=== PATIENT | male | born 1945 | race Caucasian/White ===

== ENCOUNTER 2024-09-10 06:57 | Day surgery (SDC) | payer MEDICARE ==
[2024-09-09 11:17] LABS: BASOPHILS # (AUTO) 0.1 X10'3 (0-0.2); EOSINOPHILS # (AUTO) 0.4 X10'3 (0-0.9); EOSINOPHILS % (AUTO) 5.9 % (0-6); HEMATOCRIT 41.4 % (42.0-52.0); HEMOGLOBIN 13.8 g/dl (14.0-17.9); LYMPHOCYTES # (AUTO) 1.6 X10'3 (1.1-4.8); LYMPHOCYTES % (AUTO) 21.2 % (21-51); MEAN CORPUSCULAR HEMOGLOBIN 33.5 PG (27.0-31.0); MEAN CORPUSCULAR HGB CONC 33.4 g/dL (33.0-36.5); MEAN CORPUSCULAR VOLUME 100.2 FL (78-98); MEAN PLATELET VOLUME 8.3 FL (7.4-10.4); MONOCYTES # (AUTO) 0.8 X10'3 (0-0.9); MONOCYTES % (AUTO) 10.3 % (2-12); NEUTROPHILS # (AUTO) 4.5 X10'3 (1.8-7.7); NEUTROPHILS % (AUTO) 61.6 % (42-75); PLATELET COUNT 169 X10'3 (140-440); RED BLOOD COUNT 4.13 X10'6 (4.70-6.10); RED CELL DISTRIBUTION WIDTH 17.3 % (11.5-14.5); WHITE BLOOD COUNT 7.4 X10'3 (4.5-11.0)
[2024-09-09 11:37] LABS: ALBUMIN 3.7 G/DL (3.4-5.0); ANION GAP 10 (8-16); BLOOD UREA NITROGEN 22 MG/DL (7-18); CALCIUM 9.1 MG/DL (8.5-10.1); CHLORIDE 108 MMOL/L (99-107); CREATININE 1.47 MG/DL (0.60-1.10); GLUCOSE 112 MG/DL (70-104); POTASSIUM 4.1 MMOL/L (3.5-5.1); SODIUM 144 MMOL/L (135-145); TOTAL CARBON DIOXIDE 26.3 MMOL/L (24-32); eGFR 46 ML/MIN
[2024-09-09 11:45] LABS: APTT 28 SECONDS (22-32); INR 1.1 INR; PROTHROMBIN TIME 11.7 SECONDS (9.0-12.0)
[~2024-09-10] VITALS: Ht 175.3 cm; Wt 103.7 kg
[2024-09-10] VITALS (14 sets, daily range): BP systolic 139–157; BP diastolic 65–82; PULSE 48–66; RESP 10–18; TEMP 97.3; O2SAT 90–96
[2024-09-10] MEDS ORDERED: fentaNYL/PF 50MCG/1 ML 2ML syringe ONE (08:16)
[2024-09-10] MEDS ORDERED: verapamil 2.5 mg/ml inj IV ONE (08:16)
[2024-09-10] MEDS ORDERED: LIDOcaine 1% (10mg/ml) 2ml vial ONE (08:16)
[2024-09-10] MEDS ORDERED: midazolam 1 mg/ML 2ml injection ONE (08:16)
[2024-09-10] MEDS ORDERED: nitroGLYCERIN 500mcg/5mL D5W 5 ML IV ONE (08:17)
[2024-09-10] MEDS ORDERED: heparin 1,000unit/ml 10ml vial 10 ML ONE (08:17)
[2024-09-10] MEDS ORDERED: iohexol 350 MG/ML 50ML vial IV ONE (08:17)
[2024-09-10] MEDS ORDERED: iohexol 350MG/ML 100ml bottle IV ONE (08:17)
[2024-09-10] MEDS: diphenhydrAMINE 25mg capsule PO PRN (08:20)
[2024-09-10] MEDS: sodium bicarbonate 1meq/ml syr 150 ML in dextrose 5%-water 1,000 ML IV ONE (08:20)
[2024-09-10] MEDS: LORazepam 0.5 MG tablet PO PRN (08:20)
[2024-09-10] MEDS: normal saline 1,000 ML IV SCH (08:20)
[2024-09-10] MEDS: acetylcysteine 200 MG/ml 4ml vial PO PRN (08:21)
[2024-09-10] MEDS ORDERED: NITR0.4T48 SL (08:23)
[2024-09-10] MEDS ORDERED: ALBU18HF2 (08:23)
[2024-09-10] MEDS ORDERED: ATOR-2 PO (08:23)
[2024-09-10] MEDS ORDERED: BUSP7.5T5 PO (08:23)
[2024-09-10] MEDS ORDERED: ACET-2006 PO (08:23)
[2024-09-10] MEDS ORDERED: MUPI15CR12 TOP (08:23)
[2024-09-10] MEDS ORDERED: UBID200C18 PO (08:23)
[2024-09-10] MEDS ORDERED: ZINC50TA60 PO (08:23)
[2024-09-10] MEDS ORDERED: ASCO100031 PO (08:23)
[2024-09-10] MEDS ORDERED: ERGO500056 PO (08:23)
[2024-09-10] MEDS ORDERED: GABA300T28 PO (08:23)
[2024-09-10] MEDS ORDERED: HYDR20OI TOP (08:23)
[2024-09-10] MEDS ORDERED: CLOP75TA34 PO (08:23)
[2024-09-10] MEDS ORDERED: AMLO-708 PO (08:23)
[2024-09-10] MEDS ORDERED: FLO0.4C PO (08:23)
[2024-09-10] MEDS ORDERED: CHOL50004 PO (08:23)
[2024-09-10] MEDS ORDERED: ELDE350C (08:23)
[2024-09-10] MEDS ORDERED: CLON0.1T PO (08:23)
[2024-09-10] MEDS ORDERED: ASPI-611 PO (08:23)
[2024-09-10] MEDS ORDERED: MAGN64TA8 PO (08:23)
[2024-09-10] MEDS ORDERED: ESCI20TA39 PO (08:23)
[2024-09-10] MEDS ORDERED: HYDR25TA90 PO (08:23)
[2024-09-10] MEDS ORDERED: QUER500C PO (08:23)
[2024-09-10] MEDS ORDERED: PILO5TAB10 PO (08:23)
[2024-09-10] MEDS ORDERED: CALC0.2535 PO (08:23)
[2024-09-10] MEDS ORDERED: ISOS60TA71 PO (08:23)
[2024-09-10] MEDS ORDERED: FLUT16SP26 BOTHNARES (08:23)
[2024-09-10] MEDS ORDERED: TRIA454O TOP (08:23)
[2024-09-10] MEDS ORDERED: CARV-50 PO (08:23)
[2024-09-10] MEDS ORDERED: GLUC-221 (08:23)
[2024-09-10] MEDS ORDERED: LIDOcaine 1% 30ml preserv. free vial ONE (09:00)
[2024-09-10] MEDS ORDERED: heparin 25,000 UNIT/250ml bag 250 ML IV ONE ×2 (09:10→10:06)
[2024-09-10 09:58] LABS: ISTAT HGB ART 12.9 g/dl (14.0-17.9); ISTAT Hct ART 38 %PCV (42-52); ISTAT O2 SATURATION ARTERIAL 92 % (95-98); ISTAT SOURCE ART
[2024-09-10 14:56] LABS: ISTAT HGB MIX 12.9 g/dl (14.0-17.9); ISTAT Hct MIX 38 %PCV (42-52); ISTAT O2 SATURATION MIX VENOUS 54 % (60-80); ISTAT SOURCE VEN
[2024-09-10] MEDS: acetylcysteine 200 MG/ml 4ml vial PO SCH (17:31)
== END 2024-09-10 17:35 | disposition home or self-care (01) ==
LOC: SSTAY O 06:57
PROVIDERS: ATTEND Internal Medicine Cardiovascular Disease
DX: R94.39 Abnormal result of other cardiovascular function study (principal); I25.810 Atherosclerosis of coronary artery bypass graft(s) without angina pectoris; R53.83 Other fatigue; R06.02 Shortness of breath; I12.9 Hypertensive chronic kidney disease with stage 1 through stage 4 chronic kidney disease, or unspecified chronic kidney disease; N18.9 Chronic kidney disease, unspecified; I25.82 Chronic total occlusion of coronary artery; E78.5 Hyperlipidemia, unspecified; I25.2 Old myocardial infarction; J45.909 Unspecified asthma, uncomplicated; F41.9 Anxiety disorder, unspecified; G47.33 Obstructive sleep apnea (adult) (pediatric); F32.A Depression, unspecified; I49.5 Sick sinus syndrome; M19.90 Unspecified osteoarthritis, unspecified site; E66.9 Obesity, unspecified; F17.210 Nicotine dependence, cigarettes, uncomplicated; Z95.1 Presence of aortocoronary bypass graft; Z85.828 Personal history of other malignant neoplasm of skin; Z98.49 Cataract extraction status, unspecified eye; Z85.819 Personal history of malignant neoplasm of unspecified site of lip, oral cavity, and pharynx; Z79.899 Other long term (current) drug therapy; Z98.890 Other specified postprocedural states; Z82.49 Family history of ischemic heart disease and other diseases of the circulatory system
CPT/HCPCS: 36415; 80048; 82803; 85014; 85025; 85610; 85730; 93005; 93461; 99152; 99153; A4615; A6258; C1725; C1751; C1769; C1894; J1644; J2003; J2250; J3010; J3490; J7030; J7070; Q0163; Q9967; Z7610; 76937; 93567

== ENCOUNTER 2025-03-25 06:02 | Day surgery (SDC) | payer MEDICARE ==
[2025-03-24 12:42] LABS: MEAN PLATELET VOLUME 8.9 FL (7.4-10.4); RED CELL DISTRIBUTION WIDTH 18.0 % (11.5-14.5)
[2025-03-24 12:52] LABS: CREATININE 1.62 MG/DL (0.60-1.10); TOTAL CARBON DIOXIDE 27.1 MMOL/L (24-32); eGFR 41 ML/MIN
[2025-03-24 12:53] LABS: APTT 29 SECONDS (22-32); INR 1.1 INR
[~2025-03-25] VITALS: Ht 172.7 cm; Wt 101.6 kg
[2025-03-25] VITALS (9 sets, daily range): BP systolic 140–163; BP diastolic 61–76; PULSE 62–75; RESP 11–19; O2SAT 92–94
[~2025-03-25 06:02] MED LIST: ACET-2006 PO; ALBU18HF2; AMLO-708 PO; ASCO10004 PO; ASPI-611 PO; ATOR-2 PO; BUSP7.5T5 PO; CALC0.2535 PO; CARV-50 PO; CHOL50004 PO; CLON0.1T PO; CLOP75TA34 PO; ELDE350C; ERGO500056 PO; ESCI20TA39 PO; FLUT16SP26 BOTHNARES; GABA300T28 PO; GLUC-221; HYDR20OI TOP; HYDR25TA90 PO; ISOS60TA71 PO; MAGN71.52 PO; MUPI15CR12 TOP; NITR0.4T48 SL; PILO5TAB10 PO; QUER500C PO; TAMS-55 PO; TRIA454O TOP; UBID200C18 PO; ZINC50TA60 PO
--- NOTE | 2025-03-25 06:29 | ELECTROCARDIOGRAPH REPORT ---
[facility] Test Date: 2025-03-25 Test Time: 06:28:26 Pat Name: SADI TSE Department: [facility] Patient ID: [id number] Room: Gender: M Hose Tester: MELISSA : 1945 Requested By: CORNELIUS SKINNER Order Number: [id number] Reading MD: Dr. NED Skinner Measurements Intervals [place] Rate: 50 P: 52 CT: 284 QRS: 57 QRSD: 121 T: 76 QT: 539 QTc: 492 Interpretive Statements Sinus rhythm Atrial premature complexes Prolonged CT interval Nonspecific intraventricular conduction delay Electronically Signed On 03-27-2025 20:17:[address] NED Skinner Please click the below link to view image of tracing.
[2025-03-25] MEDS ORDERED: APIX5TAB3 PO (07:12)
[2025-03-25] MEDS ORDERED: Slow Mag PO (07:15)
[2025-03-25] MEDS ORDERED: ceFAZolin 2gm/dext,iso 50mL 50 ML IV ONE (07:31)
[2025-03-25] MEDS ORDERED: fentaNYL/PF 50MCG/1 ML 2ML syringe ONE (07:43)
[2025-03-25] MEDS ORDERED: LIDOcaine 1% W/epiNEPHrine 1:100,000 20ml vial ONE (07:43)
[2025-03-25] MEDS ORDERED: midazolam 1 mg/ML 2ml injection ONE (07:43)
[2025-03-25] MEDS ORDERED: CEPH-585 PO (12:20)
[2025-03-25] MEDS: vancomycin/NS 1 GM ADD-VANTAGE 250 ML IV ONE (13:12)
[2025-03-25] MEDS: normal saline 1000ml 1,000 ML IV SCH (13:12)
--- NOTE | 2025-03-25 13:33 | RADIOLOGY REPORT ---
DI CHEST,TWO VIEWS CLINICAL HISTORY: S/P PACEMAKER COMPARISON: None TECHNIQUE: Frontal and lateral view of the chest was obtained FINDINGS: Lines and Tubes: Left pacemaker. Lungs: No focal consolidation. Pleura: No effusion. No pneumothorax. Cardiomediastinal contours:Cardiomegaly Bones: Left shoulder arthroplasty. IMPRESSION: Cardiomegaly with mild CHF
--- NOTE | 2025-03-26 09:10 | CARDIOLOGY REPORT ---
DATE OF SERVICE: 03/25/2025 DICTATING PHYSICIAN: NED Matias MD PERMANENT PACEMAKER IMPLANTATION REPORT GENDER: Male. AGE: 79 years. HEIGHT: 172 cm. WEIGHT: 101 kg. BODY SURFACE AREA: 2.13 m2. PRIMARY PHYSICIAN: Korey Adamson MD LAY MIDWIFE: NED Matias MD INDICATION: The patient is a 79-year-old male with history of hypertension, hyperlipidemia, obstructive sleep apnea, history of smoking, CAD, status post CABG x 3 back in 1979 in [facility]. The patient has history of sick sinus syndrome and the patient had an event monitor which showed a lowest heart rate of 32 and now has episodes of AFib with paroxysmal atrial fibrillation. The patient has been having exertional fatigue and tiredness, and after discussing risks, benefits and alternative options, the patient has decided to proceed with permanent pacemaker implantation. Risks and benefits and alternative options were discussed. Informed consent was obtained. PREPROCEDURE DIAGNOSES: Sick sinus syndrome with tachybrady episodes and paroxysmal atrial fibrillation. POSTPROCEDURE DIAGNOSES: Sick sinus syndrome with tachybrady episodes and paroxysmal atrial fibrillation. PROCEDURES: * Fluoroscopy. * AV sequential pacemaker implantation. * Conscious sedation of 105 minutes. DESCRIPTION OF PROCEDURE: Left infraclavicular area was prepped and draped in the usual fashion. Using percutaneous Seldinger technique, 2 separate access obtained in the left subclavian vein using percutaneous micropuncture, exchanged with 2 J-wires. A horizontal incision placed in the left infraclavicular area. Using blunt dissection and electrocautery, subcutaneous prepectoral pacemaker pocket was fashioned. External ends of the J wires were retrieved into the pacemaker pocket. Two 7-Italian sheaths were advanced over both J-wires. Through one of them, RV lead advanced to the RV apex, screwed into the RV apex. Appropriate pacing and sensing thresholds obtained. Through the second RA lead, advanced to the right atrium. J-wire was formed, screwed into the right atrial appendage. Appropriate pacing and sensing thresholds were obtained. Sheath removed by a peel-away technique. The pacemaker was suspended into the pacemaker pocket. The pocket was closed with continuous 0 Vicryl followed by interrupted 0 Vicryl, third layer of interrupted 2-0 Vicryl applied and then skin approximated with darin. Pressure dressing applied. The patient tolerated the procedure well with no complication. TECHNICAL INFLAMMATORY DEVICE: Medtronic MRI compatible, Esther PPM, model #W3DR01, serial #[id number]. Medtronic, 03/25/2025, left pectoral location. RIGHT ATRIAL LEAD: Model #5076, cm long, serial #[id number], Medtronic, 03/25/2025, right atrial appendage. P-wave amplitude 3.5 millivolts, 389 ohms of impedance, pacing threshold 0.75 at 0.4 milliseconds. RV LEAD: Model #1076, 58 cm long, serial #[id number], Medtronic, 03/25/2025, RV apex. P-wave amplitude 3.3 millivolts, 530 ohms of impedance, pacing threshold of 0.5 volt at 0.4 millisecond. IMPRESSION: This is a 79-year-old male with sick sinus syndrome with symptomatic tachy dominick episodes, underwent successful AV sequential pacemaker implantation without complications. NED Matias MD TID: [id number] RECEIPT: [id number] YAO/GOGO/MAXIMINO MTDD
== END 2025-03-25 16:10 | disposition home or self-care (01) ==
LOC: SSTAY O 06:02
PROVIDERS: ATTEND Internal Medicine Cardiovascular Disease
DX: I49.5 Sick sinus syndrome (principal); I25.119 Atherosclerotic heart disease of native coronary artery with unspecified angina pectoris; I65.29 Occlusion and stenosis of unspecified carotid artery; I73.9 Peripheral vascular disease, unspecified; I10 Essential (primary) hypertension; M19.90 Unspecified osteoarthritis, unspecified site; J45.909 Unspecified asthma, uncomplicated; E78.5 Hyperlipidemia, unspecified; G47.33 Obstructive sleep apnea (adult) (pediatric); F17.200 Nicotine dependence, unspecified, uncomplicated; F41.9 Anxiety disorder, unspecified; F32.A Depression, unspecified; Z79.899 Other long term (current) drug therapy; Z98.890 Other specified postprocedural states; Z95.1 Presence of aortocoronary bypass graft
CPT/HCPCS: 33208; 36415; 71046; 80048; 85025; 85610; 85730; 93005; 99152; 99153; A4565; C1785; C1898; J0690; J1171; J1200; J2250; J3010; J3373; J3490; J7030; Z7610

== ENCOUNTER 2025-05-29 02:07 | Emergency (ER) | payer MEDICARE ==
[~2025-05-29] VITALS: Ht 177.8 cm; Wt 109.1 kg
[~2025-05-29 02:07] MED LIST changes: +APIX5TAB3 PO; -ASCO10004 PO; -ELDE350C; -ERGO500056 PO; -GLUC-221; -HYDR20OI TOP; -MAGN71.52 PO; -MUPI15CR12 TOP; -QUER500C PO; +Slow Mag PO; -TRIA454O TOP; -ZINC50TA60 PO
--- NOTE | 2025-05-29 02:16 | Physician Documentation ---
History of Present Illness General Stated Complaint: NOSE BLEED Time Seen by MD: 02:13 History of Present Illness Initial Comments The patient is a 79-year-old male who has a history of CVA as well as atrial fibrillation presents to the emergency room with a left-sided nosebleed. Marcellus pichardo states he has a history of nosebleeds in the past. He states he has been cauterized in the past on both sides of his nose. The patient states he started having a nosebleed on the right side proximally 10:00 p.m.. Patient states he has had continued bleeding for the last 4 hours. Patient denies any chest pain he denies use she will be she will these symptoms are moderate and persistent Medication Reconciliation Allergies: Coded Allergies: No Known Allergies (Unverified , 05/29/25) Scheduled Amlodipine Besylate (Amlodipine Besylate), 1 TAB PO DAILY, (Reported) Apixaban (Eliquis), 1 TAB PO BID, (Reported) Aspirin (Aspir 81), 1 TAB PO DAILY, (Reported) Atorvastatin Calcium (Atorvastatin Calcium), 1 TAB PO DAILY, (Reported) Buspirone Hcl (Buspirone Hcl), 1 TAB PO QID, (Reported) Calcitriol (Calcitriol), 1 CAP PO MoWeFr, (Reported) Carvedilol (Carvedilol), 0.5 TAB PO BID, (Reported) Cholecalciferol (Vitamin D3) (Vitamin D3), 1 CAP PO DAILY, (Reported) Clonidine HCl (Clonidine HCl), 1 TAB PO BID, (Reported) Clopidogrel Bisulfate (Clopidogrel), 1 TAB PO DAILY, (Reported) Escitalopram Oxalate (Escitalopram Oxalate), 1 TAB PO DAILY, (Reported) Fluticasone Propionate (Fluticasone Propionate), 2 SPRAYS BOTHNARES DAILY, (Reported) Gabapentin (Gabapentin ER), 1 CAP PO TID, (Reported) Hydralazine Hcl* (Apresoline*), 1 TAB PO BID, (Reported) Isosorbide Mononitrate (Isosorbide Mononitrate Er), 1 TAB PO DAILY, (Reported) Nitroglycerin (Nitroglycerin), 1 TAB SL UD, (Reported) Pilocarpine HCl (Salagen), 1 TAB PO TID, (Reported) Tamsulosin Hcl* (Flomax*), 1 TAB PO DAILY, (Reported) Ubidecarenone (Co Q-10), 1 CAP PO DAILY, (Reported) [Slow Mag], 1 TAB PO DAILY, (Reported) Scheduled PRN Acetaminophen (Acetaminophen Extra Strength), 1-2 TAB PO BID PRN for pain, (Reported) Miscellaneous Medications Albuterol Sulfate (Ventolin Hfa), (Reported) Review of Systems All Other Systems at this time: Reviewed and Negative Physical Exam Physical Exam Physical Exam VITALS: Reviewed and as above. GENERAL: Alert, no apparent distress. HEENT: Normocephalic, bleeding from the left naris, PERRL, EOMI, dry mucosa, no erythema RESPIRATORY: Lungs clear, normal breath sounds, no respiratory distress. CHEST: No accessory muscle use, no retractions CV: Irregularly irregular, rhythm, no edema, no murmur, No: JVD GI: Soft, non-tender, bowels sounds present, no rebound, guarding, or rigidity BACK: No CVA tenderness, or swelling MUSCULOSKELETAL: No deformities, no edema SKIN: Warm and dry, pale NEURO: Oriented x4, No motor or sensory deficit PSYCH: Normal mood and affect, no agitation Progress Results/Orders Results/Orders Completed Orders - OHLFS,RAMON Moore MD Cbc/Diff (05/29/25 02:13) BMP (05/29/25 02:13) Phenylephrine Nasal [place] (Vaughn-Synephrin (05/29/25 02:15) Lidocaine 4% Topical Marielle 50ml (Xylocaine (05/29/25 02:15) Clonidine Tablet (Catapres Tablet) (05/29/25 03:20) Tranexamic Acid Inj. (Cyklokapron Inj.) (05/29/25 04:10) Medications Received in ER Medications (Trade) Dose Ordered Sig/Figueroa Route PRN Reason Start Time Stop Time Status Last Admin Dose Admin (Vaughn-synephrine 1% nasal spray) 1 spr ONCE ONCE NS 05/29/25 02:15 05/29/25 02:16 DC 05/29/25 02:23 1 SPR (Xylocaine 4% Topical Marielle) 1 ml ONCE ONCE TP 05/29/25 02:15 05/29/25 02:17 DC 05/29/25 02:23 1 ML (Catapres tablet) 0.2 mg ONCE ONCE PO 05/29/25 03:20 05/29/25 03:21 DC 05/29/25 03:21 0.2 MG (Cyklokapron inj.) 1,000 mg ONCE ONCE IV 05/29/25 04:10 05/29/25 04:11 DC 05/29/25 04:25 1,000 MG Vital Signs 05/29/25 05/29/25 05/29/25 05/29/25 02:14 02:15 03:21 04:31 Temp 97.2 Pulse 80 64 73 Resp 18 18 16 18 B/P (MAP) 147/79 168/84 (112) 124/83 (97) Pulse Ox 98 99 98 05/29/25 05:08 Temp 98.1 Pulse 80 Resp 16 B/P (MAP) 132/76 Pulse Ox 99 Laboratory Tests Test 05/29/25 02:28 White Blood Count 7.8 Red Blood Count 3.48 L Hemoglobin 11.7 L Hematocrit 34.4 L Mean Corpuscular Volume 99.0 H Mean Corpuscular Hemoglobin 33.5 H Mean Corpuscular Hemoglobin Concent 33.9 Red Cell Distribution Width 20.2 H Platelet Count 156 Mean Platelet Volume 8.8 Neutrophils (%) (Auto) 67.7 Lymphocytes (%) (Auto) 19.5 L Monocytes (%) (Auto) 9.0 Eosinophils (%) (Auto) 3.0 Basophils (%) (Auto) 0.8 Neutrophils # (Auto) 5.3 Lymphocytes # (Auto) 1.5 Monocytes # (Auto) 0.7 Eosinophils # (Auto) 0.2 Basophils # (Auto) 0.1 CBC Comment Sodium Level 144 Potassium Level 3.9 Chloride Level 109 H Carbon Dioxide Level 26.4 Anion Gap 9 Blood Urea Nitrogen 21 H Creatinine 1.49 H Estimated GFR/1.73 m2 45 BUN/Creatinine Ratio 14.1 Glucose Level 122 H Calcium Level 8.6 Albumin 3.6 Chemistry Comments Medical Decision Making Additional information obtaine: old records Findings Patient is a 79-year-old male who is on Eliquis as well as Plavix for stroke and AFib, presents with a nosebleed patient is having bleeding from the right naris. The patient was anesthetized with the floor pledgets that were placed into the right naris with Vaughn-Synephrine and 4% lidocaine then a nasal rhino rocket was placed in the right naris also a Merocel pack was added as he continued to bleed. Patient was given clonidine in his his blood pressure was slightly elevated. He continued to ooze slightly and a dose of tranexamic acid was given. Patient has had very little bleeding from the right naris he has been advised to stop taking the Eliquis and Plavix for the next three days the patient will be discharged with instructions to return for worsening of symptoms has been told to keep the packing in for the next two days. The patient's pulse ox was interpreted as normal and adequate Differential Diagnosis Coagulopathy a epistaxis nasal trauma Departure Time of Disposition: 03:55 Disposition: 01 HOME / SELF CARE / HOMELESS Impression: Primary Impression: Epistaxis Discharge Instructions: Nosebleed, Adult Additional Instructions: Keep the nasal pack in for the next two days stop her Coumadin Plavix for the next three days. Follow up with your healthcare provider as soon as possible. You can return in two days to have the pack removed or he could remove yourself after deflating the balloon. Referrals: NO PRIMARY CARE PROVIDER (PCP) Signature Scribe Signature: no scribe Attestation: The note accurately reflects work and decisions made by me.Ramon Antunez MD 05:15 RAMON ANTUNEZ MD May 29, 2025 02:16
[2025-05-29] MEDS: LIDOcaine 4% (40 mg/ml) topical solution 50ml TP ONE (02:23)
[2025-05-29] MEDS: phenylephrine 1% (X-tra strg) 15ml nasal spray NS ONE (02:23)
[2025-05-29 02:42] LABS: MEAN PLATELET VOLUME 8.8 FL (7.4-10.4); RED CELL DISTRIBUTION WIDTH 20.2 % (11.5-14.5)
[2025-05-29 02:54] LABS: CREATININE 1.49 MG/DL (0.60-1.10); TOTAL CARBON DIOXIDE 26.4 MMOL/L (24-32); eCRCL 42 ML/MIN; eGFR 45 ML/MIN
[2025-05-29] MEDS: tranexamic acid 100mg/ml inj. IV ONE (04:25)
[2025-05-29 05:08] VITALS: BP 132/76; PULSE 80; RESP 16; TEMP 98.1; O2SAT 99
== END 2025-05-29 05:10 | disposition home or self-care (01) ==
LOC: ER 02:07
DX: R04.0 Epistaxis (principal); I48.91 Unspecified atrial fibrillation; Z86.73 Personal history of transient ischemic attack (TIA), and cerebral infarction without residual deficits; Z79.899 Other long term (current) drug therapy
CPT/HCPCS: 30901; 36415; 80048; 85025; 99284; J3490; 96374